=== PATIENT | male | born 1975 | race African-American/Black ===

== ENCOUNTER 2017-12-25 23:49 | Emergency (ER) | payer SELFPAY ==
[~2017-12-25] VITALS: Ht 181.6 cm; Wt 93.0 kg
[2017-12-26] MEDS ORDERED: BACITRACIN ZINC OINT UDPKT TOP ONE (04:15)
[2017-12-26 04:16] VITALS: BP 119/65
== END 2017-12-26 05:01 | disposition home or self-care (01) ==
LOC: ER 23:49
DX: A46 Erysipelas (principal)
CPT/HCPCS: 99283

== ENCOUNTER 2019-09-17 11:09 | Emergency (ER) | payer SELFPAY ==
[~2019-09-17] VITALS: Ht 185.4 cm; Wt 91.0 kg
[2019-09-17] MEDS ORDERED: DEXAMETHASONE 4MG/ML 1ML VIAL IM SCH (11:45)
[2019-09-17] MEDS ORDERED: KETOROLAC 30MG/ML VIAL IM ONE (11:45)
[2019-09-17] MEDS ORDERED: CLINDAMYCIN HCL 150MG CAPSULE PO SCH (11:45)
[2019-09-17] MEDS ORDERED: AMOXICILLIN/POTASSIUM CLAVULANATE 875/125MG TAB PO ONE (12:00)
[2019-09-17 13:05] VITALS: BP 125/87
== END 2019-09-17 13:09 | disposition home or self-care (01) ==
LOC: ER 11:26
DX: R05 Cough (principal); R09.81 Nasal congestion; R51 Headache; F12.10 Cannabis abuse, uncomplicated
CPT/HCPCS: 96372; 99284; J1100; J1885